=== PATIENT | male | born 1990 | race Caucasian/White ===

== ENCOUNTER 2023-09-27 16:49 | Emergency (ER) | payer OTHER ==
--- NOTE | 2023-09-27 17:09 | ED ---
ENT HPI - General Chief complaint: Dental/Oral Stated complaint: Tooth pain Time Seen by Provider: 09/27/23 16:50 Source: patient, RN notes reviewed Mode of arrival: ambulatory Limitations: no limitations - History of Present Illness Initial comments: This is a 32-year-old male presents emergency department chief complaint of right maxillary dental pain that has been present over the past 2 days. Patient does have multiple fractured teeth in this area in addition to dental caries symptoms concerning for infection. He states the pain will radiate posteriorly into his jaw. He states he is also felt chilled with no reported fevers. He states that he had a history of a dental infection in the early winter and was prescribed amoxicillin for this which helped clear the infection. He denies chest pain, shortness of breath, dizziness, lightheadedness or fatigue. No other acute complaints at this time. - Related Data Previous Rx's Medication Instructions Recorded Amoxicillin 500 mg PO Q8H #30 capsule 09/27/23 Ibuprofen [Motrin] 800 mg PO Q6HR #30 tab 09/27/23 Allergies Allergy/AdvReac Type Severity Reaction Status Date / Time No Known Allergies Allergy Verified 09/27/23 17:00 Review of Systems ROS Statement: Those systems with pertinent positive or pertinent negative responses have been documented in the HPI. ROS Other: All systems not noted in ROS Statement are negative. Past Medical History Past Medical History: No Reported History History of Any Multi-Drug Resistant Organisms: None Reported Past Surgical History: No Surgical Hx Reported Past Psychological History: No Psychological Hx Reported Smoking Status: Current every day smoker Past Alcohol Use History: None Reported Past Drug Use History: Marijuana General Exam Limitations: no limitations General appearance: alert, in no apparent distress Head exam: Present: atraumatic, normocephalic, normal inspection Eye exam: Present: normal appearance, PERRL, EOMI. Absent: scleral icterus, conjunctival injection, periorbital swelling Expanded Mouth exam: Present: normal external inspection Teeth exam: Present: dental caries, fractured tooth #, dental tenderness # Throat exam: normal inspection. negative: tonsillar erythema Neck exam: Present: normal inspection. Absent: tenderness, meningismus, lymphadenopathy Respiratory exam: Present: normal lung sounds bilaterally. Absent: respiratory distress, wheezes, rales, rhonchi, stridor Cardiovascular Exam: Present: regular rate, normal rhythm, normal heart sounds. Absent: systolic murmur, diastolic murmur, rubs, gallop, clicks GI/Abdominal exam: Present: soft, normal bowel sounds. Absent: distended, tenderness, guarding, rebound, rigid Extremities exam: Present: normal inspection, full ROM, normal capillary refill. Absent: tenderness, pedal edema, joint swelling, calf tenderness Back exam: Present: normal inspection Neurological exam: Present: alert, oriented X3, CN II-XII intact Psychiatric exam: Present: normal affect, normal mood Skin exam: Present: warm, dry, intact, normal color. Absent: rash Course Vital Signs 09/27/23 16:58 Temperature 97.8 F Pulse Rate 96 Respiratory 18 Rate Blood Pressure 131/82 O2 Sat by Pulse 99 Oximetry Medical Decision Making - Medical Decision Making Was pt. sent in by a medical professional or institution ([facility], [facility], urgent care, hospital, or senior care...) When possible be specific @ -No Did you speak to anyone other than the patient for history (EMS, parent, family, police, friend...)? What history was obtained from this source @ -No Did you review nursing and triage notes (agree or disagree)? Why? @ -I reviewed and agree with nursing and triage notes Were old charts reviewed (outside hosp., previous admission, EMS record, old EKG, old radiological studies, urgent care reports/EKG's, senior care records)? Report findings @ -No old charts were reviewed Differential Diagnosis (chest pain, altered mental status, abdominal pain women, abdominal pain men, vaginal bleeding, weakness, fever, dyspnea, syncope, headache, dizziness, GI bleed, back pain, seizure, CVA, palpatations, mental health, musculoskeletal)? @ -Dental caries, dental pain, pulpitis, gingivitis, dental fracture, this list is not all inclusive EKG interpreted by me (3pts min.). @ -None X-rays interpreted by me (1pt min.). @ -None done CT interpreted by me (1pt min.). @ -None done U/S interpreted by me (1pt. min.). @ -None done What testing was considered but not performed or refused? (CT, X-rays, U/S, labs)? Why? @ -None What meds were considered but not given or refused? Why? @ -None Did you discuss the management of the patient with other professionals (professionals i.e. , PA, [employer], lab, RT, psych nurse, social sciences chair, closing machine operator, teacher, global safety officer, casework specialist)? Give summary @ -No Was smoking cessation discussed for >3mins.? @ -No Was critical care preformed (if so, how long)? @ -No Were there social determinants of health that impacted care today? How? (Homelessness, low income, unemployed, alcoholism, drug addiction, transportation, low edu. Level, literacy, decrease access to med. care, [facility], rehab)? @ -No Was there de-escalation of care discussed even if they declined (Discuss DNR or withdrawal of care, Hospice)? DNR status @ -No What co-morbidities impacted this encounter? (DM, HTN, Smoking, COPD, CAD, Cancer, CVA, ARF, Chemo, Hep., AIDS, mental health diagnosis, sleep apnea, morbid obesity)? @ -None Was patient admitted / discharged? Hospital course, mention meds given and route, prescriptions, significant lab abnormalities, going to OR and other pertinent info. @ -discharge. 32-year-old male with dental pain. On examination patient is noted to have overall poor dentition with multiple dental fractures and dental caries of the right maxillary teeth. There is point tenderness over the fractured teeth. There are no signs of dental abscesses. There is no joint tenderness on examination. Patient's vitals are stable and there is no signs of acute distress. Patient will be given a dose of Toradol in the emergency department and sent a prescription for amoxicillin and ibuprofen 800 to take as needed for pain relief. Recommend that patient calls his dentist on Friday and schedules an appointment next week for further evaluation. All questions answered at bedside and strict return parameters discussed with the patient he is verbalized understanding. Case discussed with Dr. Camarillo Undiagnosed new problem with uncertain prognosis? @ -No Drug Therapy requiring intensive monitoring for toxicity (Heparin, Nitro, Insulin, Cardizem)? @ -No Were any procedures done? @ -No Diagnosis/symptom? @ -dental pain, dental caries Acute, or Chronic, or Acute on Chronic? @ -acute (without systemic symptoms) or Complicated (systemic symptoms)? @ -uncomplictaed Side effects of treatment? @ -No Exacerbation, Progression, or Severe Exacerbation? @ -No Poses a threat to life or bodily function? How? (Chest pain, USA, OR, pneumonia, PE, COPD, DKA, ARF, appy, cholecystitis, CVA, Diverticulitis, Homicidal, Suicidal, threat to staff... and all critical care pts) @ -No Disposition Clinical Impression: Pain, dental, Dental cavities, Dental infection Disposition: HOME SELF-CARE Condition: Good Instructions (If sedation given, give patient instructions): Toothache (ED) Additional Instructions: Complete full course of antibiotics as prescribed. Recommend that you follow-up with dentist next week for further evaluation. Return to emergency department for any new or worsening symptoms. Prescriptions: Amoxicillin 500 mg PO Q8H #30 capsule Ibuprofen [Motrin] 800 mg PO Q6HR #30 tab Is patient prescribed a controlled substance at d/c from ED?: No Referrals: None,Stated [Primary Care Provider] - 1-2 days Time of Disposition: 17:31
[2023-09-27] MEDS: KETOROLAC 15 MG/ML 1 ML VIAL IM STA (17:38)
[2023-09-27 17:46] VITALS: BP 121/84; PULSE 82; RESP 17; TEMP 98
== END 2023-09-27 17:46 | disposition home or self-care (01) ==
LOC: EC 16:49
DX: K02.9 Dental caries, unspecified (principal); K04.7 Periapical abscess without sinus; F17.200 Nicotine dependence, unspecified, uncomplicated
CPT/HCPCS: 99282; 96372; J1885